=== PATIENT | male | born 1960 | race Caucasian/White ===

== ENCOUNTER → 2021-06-13 09:13 | Outpatient (CLI) | payer MEDICARE, MEDICAID, SELFPAY ==
--- NOTE | ~2021-06-13 | XR_ITS ---
EXAMINATION: XR chest 2V DATE: 06/13/2021 09:47 INDICATION: Arm mass TECHNIQUE: PA and lateral views of the chest are obtained. COMPARISON: None available FINDINGS: The lungs are free of acute opacities. There is no pleural effusion or pneumothorax. The ca rdiomediastinal silhouette is normal. There is moderate thoracic spondylosis. IMPRESSION: 1. No acute cardiopulmonary abnormality. Reviewed, dictated and finalized at location [facility]. [facility]
== END ==
DX: Z01.818 Encounter for other preprocedural examination (principal)
CPT/HCPCS: 71046

== ENCOUNTER 2021-12-07 09:40 | Emergency (ER) | payer MEDICARE, MEDICAID, SELFPAY ==
[2021-12-07 09:52] VITALS: BP 104/72; PULSE 89; RESP 20; TEMP 37.4; O2SAT 97
--- NOTE | 2021-12-07 09:53 | ED.URI ---
HPI - URI/Sore Throat General Chief Complaint: Upper Respiratory Infection Stated Complaint: Sore throat, fever Time Seen by Provider: 12/07/21 09:56 History of Present Illness HPI Narrative: 61 y/o male with history of cerebral palsy presented with caregiver for c/o sore throat Related Data Home Medications Medication Instructions Recorded Confirmed acetaminophen 325 mg tablet (Mapap 325 mg PO Q6H PRN Fever Or Pain 09/15/20 12/07/21 (acetaminophen)) bisacodyl 5 mg tablet,delayed 5 mg PO ONCE 09/15/20 12/07/21 release calcium carbonate 500 mg calcium 500 mg PO DAILY 09/15/20 12/07/21 (1,250 mg) tablet (Oyster Shell Calcium) diphenhydramine HCl 25 mg capsule 25 mg PO Q6H PRN Cold Symptoms 09/15/20 12/07/21 (Allergy (diphenhydramine)) multivitamin with iron 1 tablet PO DAILY 09/15/20 11/22/21 aluminum-magnesium hydroxide 500 30 ml PO Q4H PRN Constipation 08/22/21 12/07/21 mg-500 mg/5 mL oral suspension bismuth subsalicylate 262 mg/15 mL 524 mg PO Q1H PRN Constipation 08/22/21 12/07/21 oral suspension cholecalciferol (vitamin D3) 25 25 mcg PO DAILY 08/22/21 12/07/21 mcg (1,000 unit) tablet guaifenesin 100 mg/5 mL oral 200 mg PO Q4H PRN Cough 08/22/21 11/22/21 liquid (Robafen) sodium chloride 0.65 % nasal spray 1 spray intranasal TID PRN 08/22/21 11/22/21 aerosol (Deep Sea Nasal) Allergies Allergy/AdvReac Type Severity Reaction Status Date / Time meperidine Allergy Unknown Unknown Verified 12/07/21 09:45 Review of Systems Review of Systems: CONSTITUTIONAL: Denies body aches, fever, chills, or sweats. EYES: Denies visual changes, redness, or discharge. ENT: Denies rhinorrhea, congestion, or otalgia. CARDIOVASCULAR: Denies chest pain, palpitations, or edema. RESPIRATORY: Denies dyspnea. GASTROINTESTINAL: Denies abdominal pain, nausea, vomiting, or diarrhea. SKIN: Denies rash, itching, or wounds. MUSCULOSKELETAL: Denies back pain, joint pain, or myalgia. NEUROLOGIC: Denies headache PMFSH Past Medical History Medical History Cerebral palsy Hepatitis B carrier Hypersalivation Mild intellectual disability Social History Social History Social History: never smoker Smoking status: Never smoker Alcohol intake: never Substance use: never Exam Narrative: GENERAL: no acute distress. Nonverbal EYES: conjunctivae clear ENT: Mucous membranes moist. TM pearly shukla with normal light reflex bilaterally; no tragal tenderness. Oropharynx erythematous without lesions. Large amount PND. Chronic drooling, no trismus, uvula midline. No tripod positioning NECK: Supple. No lymphadenopathy CHEST: Clear to auscultation, breath sounds equal. No respiratory distress, speaks in full sentences. HEART: Regular rate and rhythm. No murmur heard. SKIN: Warm, dry, no rash. MUSC: kyphosis Course Course Emergency Course: Patient is aware of diagnosis, understands and agrees to treatment plan. Anticipatory guidance given. Patient agrees to follow-up as directed and is aware of reasons to seek care at the emergency department. Portions of this record may have been created with voice recognition software Level of Care: Express Care Visit Vital Signs Vital signs: Vital Signs Temperature 99.3 F 12/07/21 09:52 Pulse Rate 89 12/07/21 09:52 Respiratory Rate 20 12/07/21 09:52 Blood Pressure 104/72 12/07/21 09:52 Pulse Oximetry 97 12/07/21 09:52 Oxygen Delivery Room Air 12/07/21 09:52 Temperature 99.3 F 12/07/21 09:52 Pulse Rate 89 12/07/21 09:52 Respiratory Rate 20 12/07/21 09:52 Blood Pressure 104/72 12/07/21 09:52 Pulse Oximetry 97 12/07/21 09:52 Oxygen Delivery Room Air 12/07/21 09:52 MDM - URI/Sore Throat MDM Narrative Medical decision making narrative: Negative covid and strep result reviewed with pt. Advise supportive treat
== END 2021-12-07 10:35 | disposition home or self-care (01) ==
PROVIDERS: Emergency Provider Nurse Practitioner Family; PCP Internal Medicine
DX: J02.9 Acute pharyngitis, unspecified (principal); Z20.822 Contact with and (suspected) exposure to COVID-19; G80.9 Cerebral palsy, unspecified; F70 Mild intellectual disabilities; K11.7 Disturbances of salivary secretion
CPT/HCPCS: 87081; 87426; 87880; 99213; C9803; G0463

== ENCOUNTER 2022-04-10 01:46 | Day surgery (SDC) | payer MEDICARE, MEDICAID, SELFPAY ==
[2022-03-30 13:43] VITALS: BMI 20.7
[2022-04-10 07:26] VITALS: BP 117/72; PULSE 76; RESP 18; TEMP 36.6; O2SAT 96
--- NOTE | 2022-04-10 07:28 | WPDHPUPDATE1 ---
History and Physical Update Update Date/Time: 04/10/22 07:28 History and Physical has been reviewed, including an updated exam of the patient. There are NO changes in the patient's condition. Risks, benefits, and alternatives have been discussed and questions answered. Patient agrees to proceed with procedure.
[2022-04-10] MEDS: LACTATED RINGERS 1,000 ML 150 ML IV CONT (07:43)
--- NOTE | 2022-04-10 08:24 | WPDANESEPPF ---
Anes - Initial Pre Proc Eval Procedure: Operation Date: 04/10/22 08:30 Proposed Procedures p Colonoscopy - Cory Walsh MD Date/Time: 04/10/22 08:24 Surgeon: Cory Walsh MD Pre Op Diagnosis: melena Patient Data Age: 61 Gender: M Height: 1.7 m Weight: 60 kg Last Vital Signs Temp 97.9 F 04/10/22 07:26 Pulse 76 04/10/22 07:26 Resp 18 04/10/22 07:26 BP 117/72 04/10/22 07:26 Pulse Ox 96 04/10/22 07:26 O2 Del Method Room Air 04/10/22 07:26 Allergies Allergy/AdvReac Type Severity Reaction Status Date / Time meperidine Allergy Unknown Unknown Verified 04/10/22 07:22 Home Medications Medication Instructions Recorded Confirmed Type acetaminophen 325 mg tablet (Mapap 325 mg PO Q6H PRN Fever Or Pain 09/15/20 03/30/22 History (acetaminophen)) bisacodyl 5 mg tablet,delayed 5 mg PO ONCE 09/15/20 03/30/22 History release calcium carbonate 500 mg calcium 500 mg PO DAILY 09/15/20 03/30/22 History (1,250 mg) tablet (Oyster Shell Calcium) diphenhydramine HCl 25 mg capsule 25 mg PO Q6H PRN Cold Symptoms 09/15/20 03/30/22 History (Allergy (diphenhydramine)) multivitamin with iron 1 tablet PO DAILY 09/15/20 03/30/22 History aluminum-magnesium hydroxide 500 30 ml PO Q4H PRN Constipation 08/22/21 03/30/22 History mg-500 mg/5 mL oral suspension bismuth subsalicylate 262 mg/15 mL 524 mg PO Q1H PRN Constipation 08/22/21 03/30/22 History oral suspension cholecalciferol (vitamin D3) 25 25 mcg PO DAILY 08/22/21 03/30/22 History mcg (1,000 unit) tablet guaifenesin 100 mg/5 mL oral 200 mg PO Q4H PRN Cough 08/22/21 03/30/22 History liquid (Robafen) sodium chloride 0.65 % nasal spray 1 spray intranasal TID PRN Allergy 08/22/21 03/30/22 History aerosol (Deep Sea Nasal) Symptoms cetirizine 10 mg tablet (Zyrtec) 10 mg PO DAILY PRN congestion #20 12/07/21 03/30/22 Rx tabs sodium,potassium,mag sulfates 17.5 See Rx Instructions PO .COMPLEX 03/13/22 03/30/22 Rx gram-3.13 gram-1.6 gram oral soln #354 mL (Suprep Bowel Prep Kit) Patient hx anesthesia problems: none Family hx anesthesia problems: none Results Review: All pre-operative results and documents have been reviewed as part of the pre-operative evaluation. [facility] Past Medical History Medical History (Updated 03/08/22 @ 09:57 by Dahiana Victoria, LAVERN) Cerebral palsy GI bleed Hepatitis B carrier Hx of adenomatous colonic polyps Hypersalivation Lung abscess Mild intellectual disability Social History Social History Social History: never smoker Smoking status: Never smoker Alcohol intake: current Alcohol use details: on occasion Substance use: never Substance use type: does not use Living arrangements: assisted living Additional living arrangements comments: long term Spiritual care concerns: No Anes - Eval Final PreProcedure Day of Procedure 04/10/22 08:24 Patient weight: normal Heart: regular rate and rhythm Lungs: clear to auscultation Airway: Mallampati scale class III Neurological: alert and oriented Last oral intake: >/= 8 hours ASA classification: III Emergent: no Anesthetic plan: proceed Anesthesia type and monitoring: general GIVS and standard monitoring Results Review: All pre-operative results and documents have been reviewed as part of the pre-operative evaluation. Informed Consent: The patient's anesthetic plan and its attendant risks and benefits were discussed with the patient/family/POA. Questions were solicited and answers provided to the satisfaction of the patient/family/POA.
[2022-04-10 08:38] VITALS: BP 92/60; PULSE 69; RESP 15; O2SAT 99
[2022-04-10 08:48] VITALS: BP 99/67; PULSE 71; RESP 21; O2SAT 99
[2022-04-10 08:58] VITALS: BP 108/76; PULSE 73; RESP 17; O2SAT 99
--- NOTE | 2022-04-11 14:32 | PM.HPGS ---
History of Present Illness History of Present Illness Consent: Risks, benefits, and alternatives have been discussed and questions answered. Patient agrees to proceed with procedure. Chief complaint: melena Narrative: Dom Gutierrez is a 61 year old male presents for colonoscopy because of blood in his stool. Patient has cerebral palsy and is nonverbal. His paedodontist reports that he has had some episodes of blood in his stool. Patient has a very distant history of adenomatous colon polyp. Currently lives in a nursing facility and has a caregiver. Bright red blood per rectum was noted 1 or 2 occasions. Patient does have a history of aspiration pneumonia and lung abscess treated in the past. An EGD has been requested. Patient presents today for this procedure. Review of Systems Review of Systems: Review of systems noncontributory. [facility] Past Medical History Medical History (Updated 04/11/22 @ 14:34 by Cory Walsh MD) Cerebral palsy GI bleed Hepatitis B carrier Hx of adenomatous colonic polyps Hypersalivation Lung abscess Mild intellectual disability Social History Social History Social History: never smoker Smoking status: Never smoker Alcohol intake: current Alcohol use details: on occasion Substance use: never Substance use type: does not use Living arrangements: assisted living Additional living arrangements comments: custodial Spiritual care concerns: No Meds Home Medications and Allergies Home Medications Medication Instructions Recorded Confirmed Type acetaminophen 325 mg tablet (Mapap 325 mg PO Q6H PRN Fever Or Pain 09/15/20 03/30/22 History (acetaminophen)) bisacodyl 5 mg tablet,delayed 5 mg PO ONCE 09/15/20 03/30/22 History release calcium carbonate 500 mg calcium 500 mg PO DAILY 09/15/20 03/30/22 History (1,250 mg) tablet (Oyster Shell Calcium) diphenhydramine HCl 25 mg capsule 25 mg PO Q6H PRN Cold Symptoms 09/15/20 03/30/22 History (Allergy (diphenhydramine)) multivitamin with iron 1 tablet PO DAILY 09/15/20 03/30/22 History aluminum-magnesium hydroxide 500 30 ml PO Q4H PRN Constipation 08/22/21 03/30/22 History mg-500 mg/5 mL oral suspension bismuth subsalicylate 262 mg/15 mL 524 mg PO Q1H PRN Constipation 08/22/21 03/30/22 History oral suspension cholecalciferol (vitamin D3) 25 25 mcg PO DAILY 08/22/21 03/30/22 History mcg (1,000 unit) tablet guaifenesin 100 mg/5 mL oral 200 mg PO Q4H PRN Cough 08/22/21 03/30/22 History liquid (Robafen) sodium chloride 0.65 % nasal spray 1 spray intranasal TID PRN Allergy 08/22/21 03/30/22 History aerosol (Deep Sea Nasal) Symptoms cetirizine 10 mg tablet (Zyrtec) 10 mg PO DAILY PRN congestion #20 12/07/21 03/30/22 Rx tabs sodium,potassium,mag sulfates 17.5 See Rx Instructions PO .COMPLEX 03/13/22 03/30/22 Rx gram-3.13 gram-1.6 gram oral soln #354 mL (Suprep Bowel Prep Kit) Allergies Allergy/AdvReac Type Severity Reaction Status Date / Time meperidine Allergy Unknown Unknown Verified 04/10/22 07:22 Exam Narrative: Physical exam reveals patient to be nonverbal lying in bed he has some flexion contractures. HEENT exam reveals no icterus. Abdomen bowel sounds are present soft nontender with no organomegaly. Digital external rectal exam unremarkable with brown stool. Assessment and Plan Assessment and plan (1) Rectal bleeding: Code(s): K62.5 - Hemorrhage of anus and rectum Status: Acute Assessment and Plan: Patient with several episodes of rectal bleeding. For this reason colonoscopy is requested will be attempted today. 04/10/2022 procedure. (2) Cerebral palsy: Code(s): G80.9 - Cerebral palsy, unspecified Status: Acute (3) Hx of adenomatous colonic polyps: Code(s): Z86.010 - Personal history of colonic polyps Status: Acute Assessment and Plan: [place]iposae
== END 2022-04-10 09:09 | disposition home or self-care (01) ==
PROVIDERS: PCP Internal Medicine; Visit Provider Internal Medicine Gastroenterology
PROC: 0DJD8ZZ Inspection of Lower Intestinal Tract, Via Natural or Artificial Opening Endoscopic (ICD-10-PCS; CPT 45378; principal; 2022-04-10 08:30)
DX: K62.5 Hemorrhage of anus and rectum (principal); Z86.010 Personal history of colon polyps; G80.9 Cerebral palsy, unspecified; B18.1 Chronic viral hepatitis B without delta-agent; F70 Mild intellectual disabilities; Z53.8 Procedure and treatment not carried out for other reasons
CPT/HCPCS: 45378; J2704; J7120

== ENCOUNTER 2022-09-29 02:24 | Day surgery (SDC) | payer MEDICARE, MEDICAID, SELFPAY ==
[2022-09-14 10:11] VITALS: BMI 20.2
[2022-09-29 08:56] VITALS: BP 125/78; PULSE 74; RESP 16; TEMP 36.8; O2SAT 98
[2022-09-29] MEDS: LACTATED RINGERS 1,000 ML 150 ML IV CONT (09:05)
--- NOTE | 2022-09-29 09:24 | PM.HPGS ---
History of Present Illness History of Present Illness Consent: Risks, benefits, and alternatives have been discussed and questions answered. Patient agrees to proceed with procedure. Chief complaint: hx of colon polyps Narrative: Dom Gutierrez is a 62 year old male Presents for screening colonoscopy. Patient has a prior history of colon polyps in 2014. Recently had some rectal bleeding. This is not continued. Attempted colonoscopy in March was limited by stool. Patient presents today after additional preparation. No additional bleeding is noted. Patient has a past medical history of cerebral palsy and lives in a support group. Family history noncontributory. Review of Systems Review of Systems: Review of systems noncontributory. [facility] Past Medical History Medical History (Updated 04/11/22 @ 14:34 by Cory Walsh MD) Cerebral palsy GI bleed Hepatitis B carrier Hx of adenomatous colonic polyps Hypersalivation Lung abscess Mild intellectual disability Social History Social History Social History: never smoker Smoking status: Never smoker Alcohol intake: current Alcohol use details: occasionally Substance use: never Substance use type: does not use Living arrangements: retirement Additional living arrangements comments: retirement Spiritual care concerns: No Meds Home Medications and Allergies Home Medications Medication Instructions Recorded Confirmed Type acetaminophen 325 mg tablet (Mapap 325 mg PO Q6H PRN Fever Or Pain 09/15/20 09/29/22 History (acetaminophen)) calcium carbonate 500 mg calcium 500 mg PO BID 09/15/20 09/29/22 History (1,250 mg) tablet (Oyster Shell Calcium) diphenhydramine HCl 25 mg capsule 25 mg PO Q6H PRN Cold Symptoms 09/15/20 09/29/22 History (Allergy (diphenhydramine)) multivitamin with iron 1 tablet PO DAILY 09/15/20 09/29/22 History aluminum-magnesium hydroxide 500 30 ml PO Q4H PRN Constipation 08/22/21 09/29/22 History mg-500 mg/5 mL oral suspension bismuth subsalicylate 262 mg/15 mL 524 mg PO Q1H PRN Constipation 08/22/21 09/29/22 History oral suspension cholecalciferol (vitamin D3) 25 25 mcg PO DAILY 08/22/21 09/29/22 History mcg (1,000 unit) tablet guaifenesin 100 mg/5 mL oral 200 mg PO Q4H PRN Cough 08/22/21 09/29/22 History liquid (Robafen) sodium chloride 0.65 % nasal spray 1 spray intranasal TID PRN Allergy 08/22/21 09/29/22 History aerosol (Deep Sea Nasal) Symptoms cetirizine 10 mg tablet (Zyrtec) 10 mg PO DAILY PRN congestion #20 12/07/21 09/29/22 Rx tabs bisacodyl 5 mg tablet,delayed 20 mg PO ONCE #4 tabs 09/14/22 Rx release (Dulcolax (bisacodyl)) polyethylene glycol 3350 17 gram 17 g PO ONCE #1 ea 09/14/22 Rx oral powder packet (Miralax) Allergies Allergy/AdvReac Type Severity Reaction Status Date / Time meperidine Allergy Unknown Unknown Verified 09/29/22 08:36 Vital Signs Vital Signs - 24 hr 09/29/22 08:56 Temperature 98.2 F Pulse Rate 74 Respiratory Rate 16 Blood Pressure 125/78 Pulse Oximetry 98 Oxygen Delivery Room Air Exam Narrative: Physical exam reveals patient to be alert. Vital signs stable. HEENT exam is unremarkable. Patient is anicteric. Lungs are clear. Heart without murmur. Abdomen bowel sounds present soft nontender with no organomegaly. Extremities reveal some flexion contractures of the hands arms legs. Assessment and Plan Assessment and plan (1) Hx of adenomatous colonic polyps: Code(s): Z86.010 - Personal history of colonic polyps Status: Acute Assessment and Plan: Polyp: Identified 2014. Plans for surveillance colonoscopy at this time. (2) Rectal bleeding: Code(s): K62.5 - Hemorrhage of anus and rectum Status: Acute Assessment and Plan: Patient apparently has had some intermittent rectal bleeding this is not been persisten
--- NOTE | 2022-09-29 09:28 | WPDANESEPPF ---
Anes - Initial Pre Proc Eval Procedure: Operation Date: 09/29/22 10:00 Proposed Procedures p Colonoscopy - Cory Walsh MD Date/Time: 09/29/22 09:28 Surgeon: Cory Walsh MD Pre Op Diagnosis: hx of colon polyps Patient Data Age: 62 Gender: M Height: 1.75 m Weight: 61.2 kg Last Vital Signs Temp 98.2 F 09/29/22 08:56 Pulse 74 09/29/22 08:56 Resp 16 09/29/22 08:56 BP 125/78 09/29/22 08:56 Pulse Ox 98 09/29/22 08:56 O2 Del Method Room Air 09/29/22 08:56 Allergies Allergy/AdvReac Type Severity Reaction Status Date / Time meperidine Allergy Unknown Unknown Verified 09/29/22 08:36 Home Medications Medication Instructions Recorded Confirmed Type acetaminophen 325 mg tablet (Mapap 325 mg PO Q6H PRN Fever Or Pain 09/15/20 09/29/22 History (acetaminophen)) calcium carbonate 500 mg calcium 500 mg PO BID 09/15/20 09/29/22 History (1,250 mg) tablet (Oyster Shell Calcium) diphenhydramine HCl 25 mg capsule 25 mg PO Q6H PRN Cold Symptoms 09/15/20 09/29/22 History (Allergy (diphenhydramine)) multivitamin with iron 1 tablet PO DAILY 09/15/20 09/29/22 History aluminum-magnesium hydroxide 500 30 ml PO Q4H PRN Constipation 08/22/21 09/29/22 History mg-500 mg/5 mL oral suspension bismuth subsalicylate 262 mg/15 mL 524 mg PO Q1H PRN Constipation 08/22/21 09/29/22 History oral suspension cholecalciferol (vitamin D3) 25 25 mcg PO DAILY 08/22/21 09/29/22 History mcg (1,000 unit) tablet guaifenesin 100 mg/5 mL oral 200 mg PO Q4H PRN Cough 08/22/21 09/29/22 History liquid (Robafen) sodium chloride 0.65 % nasal spray 1 spray intranasal TID PRN Allergy 08/22/21 09/29/22 History aerosol (Deep Sea Nasal) Symptoms cetirizine 10 mg tablet (Zyrtec) 10 mg PO DAILY PRN congestion #20 08/10/22 06/02/23 Rx tabs bisacodyl 5 mg tablet,delayed 20 mg PO ONCE #4 tabs 09/14/22 Rx release (Dulcolax (bisacodyl)) polyethylene glycol 3350 17 gram 17 g PO ONCE #1 ea 09/14/22 Rx oral powder packet (Miralax) Patient hx anesthesia problems: none Family hx anesthesia problems: none Results Review: All pre-operative results and documents have been reviewed as part of the pre-operative evaluation. [facility] Past Medical History Medical History (Updated 04/11/22 @ 14:34 by Cory Walsh MD) Cerebral palsy GI bleed Hepatitis B carrier Hx of adenomatous colonic polyps Hypersalivation Lung abscess Mild intellectual disability Social History Social History Social History: never smoker Smoking status: Never smoker Alcohol intake: current Alcohol use details: occasionally Substance use: never Substance use type: does not use Living arrangements: fdc Additional living arrangements comments: fdc Spiritual care concerns: No Anes - Eval Final PreProcedure Day of Procedure 09/29/22 09:28 Patient weight: normal Heart: regular rate and rhythm Lungs: clear to auscultation Airway: Mallampati scale class III Neurological: alert and oriented Last oral intake: >/= 8 hours ASA classification: III Emergent: no Anesthetic plan: proceed Anesthesia type and monitoring: general GIVS and standard monitoring Results Review: All pre-operative results and documents have been reviewed as part of the pre-operative evaluation. Informed Consent: The patient's anesthetic plan and its attendant risks and benefits were discussed with the patient/family/POA. Questions were solicited and answers provided to the satisfaction of the patient/family/POA.
[2022-09-29] MEDS: SIMETHICONE ORAL SUSPENSION 20 MG/0.3 ML 30 ML BOTTLE 0.6 ML IRRIGATION (09:44)
[2022-09-29 09:51] VITALS: BP 87/56; PULSE 70; RESP 20; O2SAT 98
[2022-09-29 10:01] VITALS: BP 122/83; PULSE 74; RESP 20; O2SAT 100
== END 2022-09-29 10:29 | disposition home or self-care (01) ==
PROVIDERS: Visit Provider Internal Medicine Gastroenterology
PROC: 0DJD8ZZ Inspection of Lower Intestinal Tract, Via Natural or Artificial Opening Endoscopic (ICD-10-PCS; CPT 45378; principal; 2022-09-29 10:00)
DX: Z09 Encounter for follow-up examination after completed treatment for conditions other than malignant neoplasm (principal); K64.8 Other hemorrhoids; Z86.010 Personal history of colon polyps; G80.9 Cerebral palsy, unspecified; B18.1 Chronic viral hepatitis B without delta-agent
CPT/HCPCS: 45378; J2704; J7120

== ENCOUNTER 2023-01-07 13:09 | Emergency (ER) | payer MEDICARE, MEDICAID, SELFPAY ==
[2023-01-07] VITALS (19 sets, daily range): BP systolic 134–155; BP diastolic 76–93; PULSE 69–82; RESP 20; TEMP 36.3; O2SAT 97–100
--- NOTE | ~2023-01-07 | CT_ITS ---
EXAMINATION: CT brain wo con DATE: 01/07/2023 14:51 INDICATION: Head injury . TECHNIQUE: Computed tomography (CT) of the head was performed . The study and happen with pockets delroy t portable shouldn't intravenous contrast. The mA was adjusted according to patient size. Iterative r econstruction technique was employed. The dose-length product was 605.33 mGy-cm. COMPARISON: None. FINDINGS: No acute intracranial hemorrhage or extra-axial fluid collection. No hydrocephalus, mass, or herniation. No acute ischemic infarct. Unremarkable dural venous sinus attenuation. Comminuted, depressed fracture of the outer table of the left frontal bone with 6 mm depression into the left frontal sinus. Fracture lines extend into the left orbital roof. The inner table is intact. Aerated secretions in the left frontal and ethmoid sinuses, air-fluid levels in the bilateral maxilla ry sinuses, mucosal thickening in the right maxillary sinus, the remaining aerated spaces are clear. IMPRESSION: Comminuted, depressed fracture of the outer table of the left frontal bone, with extension into the l eft orbital roof and small volume hemorrhage in multiple paranasal sinuses. No acute intracranial process. Please also refer to the report on the CT face/C-spine performed concurrently. Reviewed, dictated and finalized at location K. IMPRESSION: Comminuted, depressed fracture of the outer table of the left frontal bone, wit h extension into the left orbital roof and small volume hemorrhage in multiple paranasal sinuses. No acute intracranial process. Please also refer to the report on the CT face/C-spine performed concurrently.
--- NOTE | ~2023-01-07 | CT_ITS ---
EXAMINATION: CT facial & cervical spine wo DATE: 01/07/2023 14:51 INDICATION: Head injury TECHNIQUE: Computed tomography (CT) of the maxillofacial region and cervical spine was performed intr avenous contrast. Automated exposure control and iterative reconstruction technique were employed. Th e dose-length product was 176.99 mGy-cm. COMPARISON: CT brain, same date. FINDINGS: CERVICAL: Vertebral Body Alignment: Intact. Craniocervical and atlantoaxial alignment: Moderate degenerative change. Alignment intact. Osseous structures/fracture: No evidence of a lytic or blastic process in the visualized spine. No e vidence of acute fracture. C2-3 posterior vertebral body and left facet fusion. Cervical soft tissues: The paraspinal soft tissues planes are maintained. 6 mm right thyroid lobe hyp odensity, requiring no additional evaluation at this time. Degenerative changes: Multilevel severe degenerative disc disease and facet arthropathy. Multilevel s evere bilateral neural foraminal narrowing. No severe central canal narrowing. FACE: Soft Tissues: Frontal and orbital soft tissue swelling. Soft tissue swelling along the right aspect of the nose and right cheek. Facial bones: Comminuted fracture of the outer table of the left frontal bone/frontal sinus, with 6 mm depression fracture lines extend into the left orbital roof. Chronic appearing nasal bone deformit y/depression. No lytic or blastic process. Eyes: Tiny bone fragments extend approximately 3 mm into the superior left orbit. Irregularity of th e left superior rectus muscle. Gas in the left orbit. The remaining intrapelvic contents are within n ormal limits. Paranasal Sinuses: Aerated secretions in the left frontal sinus and left ethmoid air cells. Air-flui d levels in the bilateral maxillary sinuses. Right maxillary mucosal thickening. Remaining aerated sp aces are clear. Foreign Bodies: No radiopaque foreign bodies. Other Findings: None. IMPRESSION: No acute fracture or traumatic malalignment in the cervical spine. Comminuted, depressed left frontal bone fracture involving the outer table, with extension into the l eft orbital roof, and paranasal sinus hemorrhage. Small osseous fragments extend into the left orbit where there is irregularity of the superior rectus muscle and subcutaneous gas. Correlate with extraocular movements. Chronic appearing nasal bone fracture, correlate with point tenderness/pain. Reviewed, dictated and finalized at location K. IMPRESSION: No acute fracture or traumatic malalignment in the cervical spine. Comminuted, depressed left frontal bone fracture involving the outer table, wit h extension into the left orbital roof, and paranasal sinus hemorrhage. Small osseous fragments extend into the left orbit where there is irregularity of the superior rectus muscle and subcutaneous gas. Correlate with extraocular movements. Chronic appearing nasal bone fracture, correlate with point tenderness/pain.
--- NOTE | 2023-01-07 15:48 | PC.NURSE ---
Patient able to stand and use urinal with assistance
--- NOTE | 2023-01-07 15:53 | ED.HEATRA ---
HPI - Head Injury General Chief complaint: Head Injury Stated complaint: fall, facial injury Time Seen by Provider: 01/07/23 14:03 History of Present Illness HPI Narrative: HPI obtained from family member at bedside. The patient is nonverbal. This is a 62-year-old male, with [facility] a [facility], brought in by EMS after a fall today. The patient's family member states he was notified by the penitentiary, the patient fell, striking his face. He did not lose consciousness. Related Data Home Medications Medication Instructions Recorded Confirmed acetaminophen 325 mg tablet (Mapap 325 mg PO Q6H PRN Fever Or Pain 09/15/20 09/29/22 (acetaminophen)) calcium carbonate 500 mg calcium 500 mg PO BID 09/15/20 09/29/22 (1,250 mg) tablet (Oyster Shell Calcium) diphenhydramine HCl 25 mg capsule 25 mg PO Q6H PRN Cold Symptoms 09/15/20 09/29/22 (Allergy (diphenhydramine)) multivitamin with iron 1 tablet PO DAILY 09/15/20 09/29/22 aluminum-magnesium hydroxide 500 30 ml PO Q4H PRN Constipation 08/22/21 09/29/22 mg-500 mg/5 mL oral suspension bismuth subsalicylate 262 mg/15 mL 524 mg PO Q1H PRN Constipation 08/22/21 09/29/22 oral suspension cholecalciferol (vitamin D3) 25 25 mcg PO DAILY 08/22/21 09/29/22 mcg (1,000 unit) tablet guaifenesin 100 mg/5 mL oral 200 mg PO Q4H PRN Cough 08/22/21 09/29/22 liquid (Robafen) sodium chloride 0.65 % nasal spray 1 spray intranasal TID PRN Allergy 08/22/21 09/29/22 aerosol (Deep Sea Nasal) Symptoms naproxen 500 mg tablet 500 mg PO BID 11/21/22 Allergies Allergy/AdvReac Type Severity Reaction Status Date / Time meperidine Allergy Unknown Unknown Verified 01/07/23 16:11 Review of Systems Review of Systems: Unable to obtain review of systems due to patient's nonverbal status PMFSH Past Medical History Medical History Cerebral palsy GI bleed Hepatitis B carrier Hx of adenomatous colonic polyps Hypersalivation Lung abscess Mild intellectual disability Social History Social History Social History: never smoker Smoking status: Never smoker Alcohol intake: current Alcohol use details: occasionally Substance use: never Substance use type: does not use Living arrangements: penitentiary Additional living arrangements comments: penitentiary Spiritual care concerns: No Exam Narrative: GENERAL: Well-developed, well-nourished, and in no acute distress. HEAD: Normocephalic, ecchymosis noted over the bilateral periorbital tissues, this appears newer on the left than the right. EYES: PERRLA and EOMI. ENT: Nares clear, no rhinorrhea or epistaxis. Mucous membranes moist. Oropharynx without tonsillar hypertrophy exudate or other lesions. Bilateral TMs pearly shukla nonbulging. No hemotympanum NECK: Supple. No midline spine tenderness to palpation, no step-off or crepitus CHEST: Clear to auscultation. No respiratory distress. No wheezes rales or rhonchi HEART: Regular rate and rhythm. No murmur heard. Normal peripheral pulses. ABDOMEN: Soft, nontender, nondistended, normal active bowel sounds. EXTREMITIES: Contractures noted of the bilateral distal forearms. Otherwise normal range of motion of all extremities. No edema. SKIN: Warm, dry, no rash. NEURO: Alert, nonverbal. Moving all 4 limbs purposefully. Course Course Emergency Course: 15:50 - CT head and facial bones concerning for frontal bone fracture extending to the left superior orbit without intracranial hemorrhage. CT cervical spine negative for fracture or dislocation. 16:29 - I discussed the patient with facial surgeon (Dr. Capps) at [facility], who recommends discussing the patient with neurosurgery. In the absence of extraocular movement abnormalities, the patient may follow-up with [facility]. [facility] transfer line to page neurosurgery. 16:38 - I
--- NOTE | 2023-01-07 17:01 | PC.NURSE ---
Family came out of room stating patient was vomiting. This RN went to check on patient and he was vomiting into trash can. patient's emesis had some bright red blood streaking to it.
== END 2023-01-07 17:42 ==
PROVIDERS: Emergency Provider Preventive Medicine Aerospace Medicine
DX: S02.32XA Fracture of orbital floor, left side, initial encounter for closed fracture (principal); S02.19XA Other fracture of base of skull, initial encounter for closed fracture; G80.9 Cerebral palsy, unspecified; W19.XXXA Unspecified fall, initial encounter
CPT/HCPCS: 70450; 70486; 72125; 99284

== ENCOUNTER 2023-11-01 12:24 | Emergency (ER) | payer MEDICARE, MEDICAID, SELFPAY ==
--- NOTE | ~2023-11-01 | XR_ITS ---
EXAMINATION: XR hip RT 2V w AP pelvis DATE: 11/01/2023 13:19 INDICATION: Right hip pain. TECHNIQUE: An anteroposterior view of the pelvis and 2 views of right hip were obtained. COMPARISON: None. FINDINGS: Bone alignment is normal. No fracture. There is bilateral developmental hip dysplasia. Ther e is mild osteoarthritis of the hips. IMPRESSION: 1. Mild bilateral hip osteoarthritis. 2. Bilateral developmental dysplasia of the hips. Reviewed, dictated and finalized at location E.
[2023-11-01 12:29] VITALS: BP 121/79; O2SAT 97
[2023-11-01 12:31] VITALS: BP 121/79; PULSE 66; RESP 16; TEMP 36.4; O2SAT 98
[2023-11-01 12:45] VITALS: BP 114/74; O2SAT 99
[2023-11-01 13:00] VITALS: BP 114/75; O2SAT 100
--- NOTE | 2023-11-01 13:33 | ED.GENADULT ---
HPI - General Adult General Chief complaint: Extremity Injury, Lower Stated complaint: fall last Sunday-hip pain and bruising Time Seen by Provider: 11/01/23 13:07 History of Present Illness HPI narrative: Patient is a 63-year-old nonverbal male who presents to the emergency department this afternoon after a ground level fall that occurred on Sunday. Patient does have some bruising along the right hip and elbow he was not complaining of any pain patient was brought in for further evaluation to rule out any fractures. Patient is currently resting comfortably, does not appear to be in any pain. Caregiver is present at bedside who provides the majority of the history as patient is nonverbal. No additional concerns or symptoms at this time. Related Data Home Medications Medication Instructions Recorded Confirmed acetaminophen 325 mg tablet (Mapap 325 mg PO Q6H PRN Fever Or Pain 09/15/20 09/29/22 (acetaminophen)) calcium carbonate (Oyster Shell 500 mg PO BID 09/15/20 09/29/22 Calcium) multivitamin with iron 1 tablet PO DAILY 09/15/20 09/29/22 cholecalciferol (vitamin D3) 25 25 mcg PO DAILY 08/22/21 09/29/22 mcg (1,000 unit) tablet sodium chloride 0.65 % nasal spray 1 spray intranasal TID PRN Allergy 08/22/21 09/29/22 aerosol (Deep Sea Nasal) Symptoms naproxen 500 mg tablet 500 mg PO BID 11/21/22 bisacodyl 5 mg tablet,delayed 5 mg PO QHS 05/02/23 release (Alophen (bisacodyl)) diphenhydramine HCl 25 mg capsule 25 mg PO QHS PRN 05/02/23 (Banophen) Allergies Allergy/AdvReac Type Severity Reaction Status Date / Time meperidine Allergy Unknown Unknown Verified 05/02/23 09:07 Review of Systems Review of Systems: Unable to obtain a full review of systems secondary to patient's nonverbal status, per caregiver, limited review of system is negative. [facility] Past Medical History Medical History Cerebral palsy GI bleed Hepatitis B carrier Hx of adenomatous colonic polyps Hypersalivation Lung abscess Mild intellectual disability Social History Social History (Updated 05/02/23 @ 09:11 by Lulu Pompa MA) Social History: never smoker Smoking packs per day: 0 Smoking cigarettes per day: 0.0 Years smoked: 0 Smoking pack-years: 0.00 Smoking status: Never smoker Second hand tobacco smoke exposure: No Alcohol intake: current Alcohol use details: occasionally Substance use: never Substance use type: does not use Do You Feel Safe in your Home?: Yes Lack of Transportation: No Lack of Food: Never True Current Housing: I Have Housing Concerned About Future Housing: No Difficulty Paying Gas/Electric Bills: No Difficulty Paying for Meds: No Currently Unemployed: No Education: Don't Know Difficulty w/ Childcare or Family Care: No Living arrangements: intermediate Additional living arrangements comments: intermediate Spiritual care concerns: No Exam Narrative: General: Alert, awake, afebrile, in no acute distress. HEENT: PERRL, no rhinorrhea, no post nasal drip, oropharynx clear. Cardiovascular: Regular rate and rhythm, no murmurs, rubs or gallops, no peripheral edema. Respiratory: Clear to auscultation bilaterally, no tachypnea, no wheezing, no rhonchi, no rubs, no respiratory distress. Abdomen: Soft, nontender, nondistended, no rebound, no guarding, no peritoneal signs. Musculoskeletal: Bruising overlying right hip, no tenderness to palpation. Skin: No rashes or petechia, no signs of infection. Neurological: Alert and oriented to person, place, and time. Follows all commands. No focal deficits, speech is clear and fluent. Course Vital Signs Vital signs: Vital Signs Temperature 97.5 F L 11/01/23 12:31 Pulse Rate 66 11/01/23 12:31 Respiratory Rate 16 11/01/23 12:31 Blood Pressure 121/79 11/01/23 12:31 Pulse Oximetry 98 11/01/23 12:31 Oxygen Delivery Room Air 11/01/23 12:31
[2023-11-01 13:54] VITALS: BP 123/78; PULSE 59; RESP 17; O2SAT 99
[2023-11-01 13:59] VITALS: BP 123/78; PULSE 59; RESP 17; O2SAT 99
== END 2023-11-01 13:54 | disposition home or self-care (01) ==
PROVIDERS: Emergency Provider Emergency Medicine; PCP Physician Assistant
DX: S70.01XA Contusion of right hip, initial encounter (principal); G80.9 Cerebral palsy, unspecified; F70 Mild intellectual disabilities; Z86.010 Personal history of colon polyps; W18.30XA Fall on same level, unspecified, initial encounter
CPT/HCPCS: 73502; 99283

== ENCOUNTER 2025-02-06 09:00 | Emergency (ER) | payer MEDICARE, MEDICAID, SELFPAY ==
--- NOTE | ~2025-02-06 | XR_ITS ---
EXAMINATION: XR tibia fibula LT 2V, 02/06/2025 9:30 CDT HISTORY: fall COMPARISON: No comparisons available. Findings: No acute fracture or malalignment. No significant degenerative changes. Soft tissues unremarkable. Impression: No acute fracture or malalignment. Reviewed, dictated and finalized at location P. Impression: No acute fracture or malalignment.
--- NOTE | ~2025-02-06 | XR_ITS ---
EXAMINATION: XR ankle RT min 3V, 02/06/2025 9:30 CDT HISTORY: fall COMPARISON: No comparisons available. Findings: No acute fracture or malalignment. No significant degenerative changes. Soft tissues unremarkable. Impression: No acute fracture or malalignment. Reviewed, dictated and finalized at location P. Impression: No acute fracture or malalignment.
--- NOTE | ~2025-02-06 | XR_ITS ---
EXAMINATION: XR knee LT 3V, 02/06/2025 9:30 CDT HISTORY: fall COMPARISON: No comparisons available. Findings: No acute fracture or malalignment. No significant degenerative changes. Soft tissues unremarkable. Impression: No acute fracture or malalignment. Reviewed, dictated and finalized at location P. Impression: No acute fracture or malalignment.
--- NOTE | ~2025-02-06 | CT_ITS ---
EXAMINATION: CT brain wo con DATE: 02/06/2025 09:27 INDICATION: Fall with head laceration TECHNIQUE: Computed tomography (CT) of the head was performed without intravenous contrast. Sagittal and coronal reconstructions were performed. The mA was adjusted according to patient size. Iterative reconstruction technique was employed. The dose-length product was 605.33 mGy-cm. COMPARISON: head CT dated 01/07/2023 FINDINGS: Mild motion artifact which only minimally limits evaluation. Old healed fracture deformity involving the outer wall of the left frontal sinus. No acute fracture. No acute intracranial hemorrhage, acute infarction or abnormal extra axial fluid collection. Ventricles are normal and symmetric. No mass/mass effect. Mild mucosal thickening the bilateral ethmoid sinuses with dependently layering fluid in the right frontal sinus which could be seen with acute sinusitis. The orbits and mastoid air cells are normal. IMPRESSION: 1. No acute fracture or acute intracranial process. 2. Layering fluid in the right frontal sinus suggestive of acute sinusitis. Reviewed, dictated and finalized at location A.
--- NOTE | ~2025-02-06 | CT_ITS ---
EXAMINATION: CT cervical spine wo con COMPARISON: None HISTORY: Fall TECHNIQUE: Axial images were obtained through the spine without IV contrast. Coronal, sagittal reconstruction images were obtained from the axial views. CT scan performed using dose optimization techniques including the following automated exposure control; adjustment of mA and/or kV; use of iterative reconstruction technique. Automatic exposure control was used to reduce radiation dose. Permanent radiation dose record is archived to PACS. FINDINGS: Moderate loss of vertebral height throughout, no fracture or subluxation. There is severe loss of disc height throughout with multilevel severe canal and foraminal stenosis most marked at C4-5 and C5-6, outpatient MRI is recommended. Soft tissues unremarkable. Impression: No acute abnormality. Reviewed, dictated and finalized at location P. Impression: No acute abnormality.
[2025-02-06 09:00] VITALS: BP 156/84; PULSE 76; RESP 18; TEMP 36.3; O2SAT 100
--- NOTE | 2025-02-06 09:13 | ED.FALL ---
HPI - Fall General Chief Complaint: Fall Stated Complaint: fall Time Seen by Provider: 02/06/25 09:03 Source: EMS and old records reviewed Mode of arrival: EMS Limitations: language barrier and physical limitation History of Present Illness HPI Narrative: This is a 64-year-old male patient with past medical history significant is found, developmental delay, GI bleed who is for this part nonverbal and contributory to his knees BI with exception brought to the emergency room by EMS for complaints of sustaining fall the home which he lives which is [facility] in [facility]. At baseline patient is ambulatory with assist, however for an unknown reason he fell today striking his left knee and left lower extremity as well as from his scalp. Patient presents with lacerations to the frontal scalp as well as the left parietal. There was no known LOC, however when as patient shakes his head no that he did not have any. When as what hurts patient points to his head as well as his left knee, left lower extremity and right ankle. Patient does not have any focal neurological deficits noted. Fall from: standing Fall witnessed: no Place fall occurred: home Loss of consciousness: unsure Symptoms prior to fall: other (Unknown as patient cannot verbalize.) Context: other (Unknown, however patient does have cerebral palsy and unsteady gait at baseline.) Location of injury: head and other (Extremities) Severity: mild Associated symptoms (after fall): other (Unknown due to difficulty verbalizing.) Related Data Home Medications ?Medication ?Instructions ?Recorded ?Confirmed ?Last Taken ?Type acetaminophen 325 mg tablet (Mapap 325 mg PO Q6H PRN Fever Or Pain 09/15/20 11/13/24 09/28/22 History (acetaminophen)) calcium carbonate (Oyster Shell 500 mg PO BID 09/15/20 11/13/24 09/28/22 History Calcium) cholecalciferol (vitamin D3) 25 25 mcg PO DAILY 08/22/21 11/13/24 09/28/22 History mcg (1,000 unit) tablet naproxen 500 mg tablet 500 mg PO BID 11/21/22 11/13/24 Unknown History diphenhydramine HCl 25 mg capsule 25 mg PO QHS PRN 05/02/23 11/13/24 Unknown History (Banophen) aluminum-mag hydroxide-simethicone 30 ml PO Q4H 11/13/24 11/13/24 Unknown History 200 mg-200 mg-20 mg/5 mL oral susp magnesium sulfate (laxative) 495 PO 11/13/24 11/13/24 Unknown History mg/5 gram oral granules (Epsom Salt (laxative)) multivitamin-iron sulfate 15 tablet PO 11/13/24 11/13/24 Unknown History mg-folic acid 400 mcg tablet (Tab-A-Elia Multivitamin w-iron) psyllium husk (with sugar) 3 PO 11/13/24 11/13/24 Unknown History gram/12 gram oral powder (Reguloid (psyllium husk-sucrose)) Allergies Allergy/AdvReac Type Severity Reaction Status Date / Time meperidine Allergy Unknown Unknown Verified 11/13/24 11:57 Review of Systems Review of Systems: ROS unobtainable: Yes other (Difficult to obtain secondary to patient's degree of decreased verbalizatio) PMFSH Past Medical History Medical History Lung abscess GI bleed Hx of adenomatous colonic polyps Hypersalivation Hepatitis B carrier Cerebral palsy Mild intellectual disability Social History Social History Social History: never smoker Smoking packs per day: 0 Smoking cigarettes per day: 0.0 Years smoked: 0 Smoking pack-years: 0.00 Smoking status: Never smoker Second hand tobacco smoke exposure: No Alcohol intake: current Alcohol use details: occasionally Substance use: never Substance use type: does not use Do You Feel Safe in your Home?: Yes Lack of Transportation: No Lack of Food: Never True Current Housing: I Have Housing Concerned About Future Housing: No Difficulty Paying Gas/Electric Bills: No Difficulty Paying for Meds: No Currently Unemployed: No Education: Don't Know Difficulty w/ Childcare or Family Care: No Living arrangements: custodial Additional living arrangements comments: custodial Spiritual care concerns: No Exam Const: General: healthy appearing, no acute distress and alert Nutritional Appearance: well nourished Limitations: language barrier and physical limitations HENMT: Head: laceration (Left parietal and left frontal) Face/Nose/Sinus: Normal external nose present Face and sinus: normal facial exam Teeth and gingiva: dentition normal Throat: posterior oropharynx normal and uvula midline Eyes: Conjunctivae: conjunctivae normal Pupils: Equal, round and reactive pupils present EOM: EOMs intact bilaterally Neck: Neck: normal visual inspection and no lymphadenopathy Chest: Chest palpation & inspection: normal inspection of the chest Resp: Effort & Inspection: normal respiratory effort Auscultation: clear to auscultation bilaterally Cardio: Rate: regular rate Rhythm: regular rhythm Heart sounds: no murmurs GI: Inspection: non-distended Auscultation: normal bowel sounds Back/Spine/Pelvis: Back: no CVA tenderness Skin: General skin exam: normal color Rashes: no rashes Wounds: wounds noted (Laceration to left parietal scalp and left frontal) Neuro: General: moves all extremities and no focal motor deficits Cranial nerves: Yes Nystagmus not present Other: At baseline Extrem: Other: Freely moving all extremities well without deficit. There is mild edema to the left lower extremity about the tib/fib. No deformity. Psych: Mental Status: mental status grossly normal Other: At patient's baseline Course Course Emergency Course: Patient received and 4. Evaluation performed. Imaging ordered. Tetanus is updated. Patient medicated for pain. Workup negative for any acute intracranial abnormalities or acute fractures HD he has scalp. Patient is stable for discharge home at this time. [place] Neck to be removed in 7 days. Advise Tylenol as needed for pain and return to ER if any acute onset vomiting. Any new CV symptoms we also return to ER and was primary complaint. Reevaluation(s) Reevaluation #1: On re-evaluation patient is resting comfortably without any signs of acute distress. Date: 02/06/25 Time: 10:17 Vital Signs Vital signs: Vital Signs Temperature 97.3 F L 02/06/25 09:00 Pulse Rate 76 02/06/25 09:00 Respiratory Rate 18 02/06/25 09:00 Blood Pressure 156/84 H 02/06/25 09:00 Pulse Oximetry 100 02/06/25 09:00 Oxygen Delivery Room Air 02/06/25 09:00 Temperature 97.3 F L 02/06/25 09:00 Pulse Rate 76 02/06/25 09:00 Respiratory Rate 18 02/06/25 09:00 Blood Pressure 156/84 H 02/06/25 09:00 Pulse Oximetry 100 02/06/25 09:00 Oxygen Delivery Room Air 02/06/25 09:00 Procedures Laceration Laceration 1: Date: 02/06/25 Time: 10:09 Site: scalp (Left parietal) Side (If applicable): left Size (cm): 1.5 Description: linear Depth: simple, single layer Local Anesthetic: none ====== Skin Level ====== Skin layer closed with: cait Number of sutures: 2 Technique: simple, interrupted ====== Subcutaneous Layer ====== ====== Muscle Layer ====== ====== Tendon Layer ====== Laceration 2: Date: 02/06/25 Time: 10:10 Site: scalp (Frontal) Size (cm): 0.25 Description: linear Depth: simple, single layer ====== Skin Level ====== Skin layer closed with: other (Left open and scabbed over. No repair required.) ====== Subcutaneous Layer ====== ====== Muscle Layer ====== ====== Tendon Layer ====== MDM - Fall MDM Narrative Medical decision making narrative: See HPI Differential Diagnosis Differential diagnosis: Likely syncope and other (Abnormalities of gait and mobility, ground level fall, closed head injury laceration of scalp, hematoma scalp to fib fracture, ankle fracture) Imaging Data Radiologist's impression: CT head without any acute intracranial abnormalities. There is some coincidental sinusitis noted. In addition CT cervical spine without any acute malalignment or fractures evident. X-ray right ankle without any fractures or displacement and x-ray left knee and left tib-fib without any effusion, fractures or malalignment. Discharge Plan Discharge Clinical Impression: Fall, Closed head injury, Laceration of scalp, Musculoskeletal pain Patient Disposition: Home Condition: Stable Instructions: Head Injury (ED), Musculoskeletal Pain (ED), Staple Care (ED), Fall Prevention (ED) Additional Instructions: [place] Neck to be removed from scalp in 1 weeks time. Staple remover has been given to you. Please follow-up with patient's primary care provider. Apply ice to the lacerations as needed for pain give Tylenol as needed for pain. Return to ER any or acutely worsening symptoms. Continue all medications. Patient Language: Luxembourgish Prescriptions: No Action cetirizine [Zyrtec] 10 mg tablet 10 mg PO DAILY PRN (Reason: congestion) Qty: 20 0RF cholecalciferol (vitamin D3) 25 mcg (1,000 unit) tablet 25 mcg PO DAILY naproxen 500 mg tablet 500 mg PO BID alum-mag hydroxide-simeth 200-200-20 mg/5 mL suspension 30 ml PO Q4H Rx Instructions: administer between meals and at bedtime Tab-A-Elia Multivitamin w-iron 15 mg iron- 400 mcg tablet PO Reguloid (psyllium husk-sucro) 3 gram/12 gram powder PO Epsom Salt (laxative) 495 mg/5 gram granules PO calcium carbonate [Oyster Shell Calcium] 500 mg calcium (1,250 mg) tablet 500 mg PO BID acetaminophen [Mapap (acetaminophen)] 325 mg tablet 325 mg PO Q6H PRN (Reason: Fever Or Pain) diphenhydramine HCl [Banophen] 25 mg capsule 25 mg PO QHS PRN ondansetron 4 mg tablet,disintegrating 4 mg PO Q8H PRN (Reason: nausea and vomiting) Qty: 9 0RF Follow-up/Referrals: UNKNOWN,DOCTOR [Non-Staff] Edd,Raymundo Terry [Primary Care Provider, Unknown]
--- NOTE | 2025-02-06 09:30 | PC.NURSE ---
Upon arrival to the ED, saline soaked gauze was used to cleanse the pts head lacerations.
--- NOTE | 2025-02-06 09:37 | PC.NURSE ---
Caregiver from the halfway to bedside at this time.
[2025-02-06] MEDS: KETOROLAC (*BKC) 60 MG/2 ML VIAL IM (09:44)
[2025-02-06] MEDS: TETANUS,DIPHTHERIA,AC PERTUSSIS ADULT (0.5 ML) BOOSTRIX IM (09:44)
--- NOTE | 2025-02-06 09:52 | PC.NURSE ---
While giving pt their medication and vaccine, his head lac began to drip down on his face. To prevent this from further happening, gauze was palced on the wound and it was wrapped with coband. Provider notified.
[2025-02-06 10:40] VITALS: BP 123/81; PULSE 61; RESP 14; O2SAT 99
== END 2025-02-06 10:52 | disposition home or self-care (01) ==
PROVIDERS: Emergency Provider Nurse Practitioner Adult Health; PCP Physician Assistant
DX: S01.01XA Laceration without foreign body of scalp, initial encounter (principal); S89.92XA Unspecified injury of left lower leg, initial encounter; Z23 Encounter for immunization; G80.9 Cerebral palsy, unspecified; F70 Mild intellectual disabilities; Z86.0101 Personal history of adenomatous and serrated colon polyps; W19.XXXA Unspecified fall, initial encounter
CPT/HCPCS: 12001; 70450; 72125; 73562; 73590; 73610; 90471; 90715; 96372; 99284; J1885